=== PATIENT | male | born 1965 | race Caucasian/White ===

== ENCOUNTER 2019-09-14 10:26 | Emergency (ER) | payer SELFPAY ==
[~2019-09-14] VITALS: Ht 177.8 cm; Wt 86.4 kg
[2019-09-14] MEDS ORDERED: ONDANSETRON 4MG/2ML VIAL IV ONE (10:40)
[2019-09-14] MEDS ORDERED: MORPHINE 4 MG/ML 1ML VIAL/SYRINGE (J2270) IV ONE (10:40)
[2019-09-14] MEDS ORDERED: MORPHINE 4 MG/ML 1ML VIAL/SYRINGE (J2270) As Ordered ONE (10:55)
[2019-09-14] MEDS ORDERED: ONDANSETRON 4MG/2ML VIAL As Ordered ONE (10:56)
[2019-09-14 12:45] VITALS: BP 138/76
== END 2019-09-14 13:11 | disposition home or self-care (01) ==
LOC: M ED 10:26
DX: N48.29 Other inflammatory disorders of penis (principal); S39.94XA Unspecified injury of external genitals, initial encounter; X58.XXXA Exposure to other specified factors, initial encounter; Y92.098 Other place in other non-institutional residence as the place of occurrence of the external cause; F17.210 Nicotine dependence, cigarettes, uncomplicated
CPT/HCPCS: 96374; 96375; 99284; J2270; J2405